=== PATIENT | male | born 1995 | race American Indian/Alaskan Native ===

== ENCOUNTER 2020-06-11 15:31 | Emergency (ER) | payer SELFPAY ==
--- NOTE | 2020-06-11 16:09 | Event Note ---
ED Screening Note Date of service: 06/11/20 Time: 16:08 ED Screening Note: Complains of right middle finger pain and swelling after cutting his finger 3 days ago Significant swelling and erythema noted on exam This initial assessment/diagnostic orders/clinical plan/treatment(s) is/are subject to change based on patients health status, clinical progression and re- assessment by fellow clinical providers in the ED. Further treatment and workup at subsequent clinical providers discretion. Patient/guardian urged not to elope from the ED as their condition may be serious if not clinically assessed and managed. Initial orders include: Labs X-ray
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
[2020-06-11 17:44] LABS: Alanine Aminotransferase 36 units/L (7-56); Albumin 4.5 g/dL (3.9-5); BUN/Creatinine Ratio 15; Blood Urea Nitrogen 17 mg/dL (9-20); Hemolysis Index 6
[2020-06-11 17:54] LABS: Basophils % (Auto) 0.6 % (0.0-1.8); Eosinophils # (Auto) 0.1 K/mm3 (0.0-0.4); Eosinophils % (Auto) 1.3 % (0.0-4.3); Hematocrit 38.1 % (35.5-45.6); Hemoglobin 12.8 gm/dl (11.8-15.2); Lymphocytes # (Auto) 1.8 K/mm3 (1.2-5.4); Lymphocytes % (Auto) 30.7 % (13.4-35.0); Mean Corpuscular HGB Conc 34 % (32-34); Mean Corpuscular Volume 78 fl (84-94); Monocytes # (Auto) 0.6 K/mm3 (0.0-0.8); Monocytes % (Auto) 9.8 % (0.0-7.3); Platelet Count 220 K/mm3 (140-440); Red Blood Count 4.92 M/mm3 (3.65-5.03); Red Cell Distribution Width 16.2 % (13.2-15.2)
[2020-06-11] MEDS ORDERED: SULFAMETHOXAZOLE/TRIMETHOPRIM 800/160MG DS TAB PO ONE (22:13)
[2020-06-11] MEDS ORDERED: IBUPROFEN 600 MG TAB PO ONE (22:13)
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
[2020-06-12 00:25] VITALS: BP 127/86
== END 2020-06-11 23:38 | disposition home or self-care (01) ==
LOC: ED 15:31
DX: S61.212A Laceration without foreign body of right middle finger without damage to nail, initial encounter (principal); S56.40 Unspecified injury of extensor muscle, fascia and tendon of other and unspecified finger at forearm level; L03.011 Cellulitis of right finger; Z79.899 Other long term (current) drug therapy; W45.8XXA Other foreign body or object entering through skin, initial encounter; Y93.89 Activity, other specified; Y92.009 Unspecified place in unspecified non-institutional (private) residence as the place of occurrence of the external cause; Y99.8 Other external cause status
CPT/HCPCS: 36415; 80053; 85025

== ENCOUNTER 2021-03-21 15:44 | Emergency (ER) | payer SELFPAY ==
[2021-03-21 16:03] VITALS: BP 145/76
--- NOTE | 2021-03-21 16:08 | Emergency Department Report ---
- General Chief Complaint: Sore Throat Stated Complaint: SORETHROAT X 1 WEEK Time Seen by Provider: 03/21/21 15:59 Source: patient Mode of arrival: Ambulatory Limitations: No Limitations - History of Present Illness Initial Comments: Patient is a 25-year-old male presents emergency room with complaints of a sore throat that began a week ago. He is complaining of a dry cough, chills, loss of taste. He denies any body aches, fever, vomiting, diarrhea, shortness of breath, chest pain. He has not been vaccinated for COVID-19. He has not been tested for COVID-19 since becoming sick. No past medical history. No allergies to medications. He is a smoker - Related Data Previous Rx's Medication Instructions Recorded Last Taken Type Ibuprofen [Motrin] 600 mg PO Q8H PRN #30 tablet 06/11/20 Unknown Rx Sulfamethoxazole/Trimethoprim 1 each PO Q12H #20 tablet 06/11/20 Unknown Rx [Bactrim DS TAB] Benzonatate [Tessalon Perles] 100 mg PO Q8HR PRN #10 capsule 03/21/21 Unknown Rx guaiFENesin ER [Mucinex ER] 600 mg PO Q12H #14 tablet.er 03/21/21 Unknown Rx Allergies Allergy/AdvReac Type Severity Reaction Status Date / Time No Known Allergies Allergy Verified 03/21/21 15:54 ED Review of Systems ROS: Stated complaint: SORETHROAT X 1 WEEK Other details as noted in HPI Comment: All other systems reviewed and negative ED Past Medical Hx - Medications Home Medications: Home Medications Medication Instructions Recorded Confirmed Last Taken Type Ibuprofen [Motrin] 600 mg PO Q8H PRN #30 tablet 06/11/20 Unknown Rx Sulfamethoxazole/Trimethoprim 1 each PO Q12H #20 tablet 06/11/20 Unknown Rx [Bactrim DS TAB] Benzonatate [Tessalon Perles] 100 mg PO Q8HR PRN #10 capsule 03/21/21 Unknown Rx guaiFENesin ER [Mucinex ER] 600 mg PO Q12H #14 tablet.er 03/21/21 Unknown Rx ED Physical Exam - General Limitations: No Limitations General appearance: alert, in no apparent distress - Head Head exam: Present: atraumatic, normocephalic - Eye Eye exam: Present: normal appearance - ENT ENT exam: Present: normal orophraynx, mucous membranes moist, other (no tonsillar hypertrophy or exudates ) - Respiratory Respiratory exam: Present: normal lung sounds bilaterally. Absent: respiratory distress, wheezes, rales, rhonchi, stridor, chest wall tenderness, accessory muscle use, decreased breath sounds, prolonged expiratory - Cardiovascular Cardiovascular Exam: Present: regular rate, normal rhythm, normal heart sounds. Absent: systolic murmur, diastolic murmur, rubs, gallop - Neurological Exam Neurological exam: Present: alert, oriented X3 - Psychiatric Psychiatric exam: Present: normal affect, normal mood - Skin Skin exam: Present: warm, dry, intact ED Course Vital Signs 03/21/21 15:50 Temperature 98.4 F Pulse Rate 72 Respiratory 18 Rate Blood Pressure 145/76 O2 Sat by Pulse 97 Oximetry ED Medical Decision Making - Medical Decision Making Patient is a 25-year-old male presents emergency room with complaints of a sore throat that began a week ago. He is complaining of a dry cough, chills, loss of taste. He denies any body aches, fever, vomiting, diarrhea, shortness of breath, chest pain. He has not been vaccinated for COVID-19. He has not been tested for COVID-19 since becoming sick. No past medical history. No allergies to medications. He is a smoker. Vitals are stable. On exam normal oropharynx, no tonsillar hypertrophy or exudates, breath sounds are clear bilaterally, no wh eezing, no rales, no rhonchi. Patient has no fever, no hypoxia. Symptoms could represent URI. Discussed supportive care and symptomatic treatment with patient and the importance of oral hydration. Discussed strict return precautions and the importance of outpatient primary care follow-up. Advised patient Please take medication as prescribed. Increase your fluid intake. Follow-up with your primary care doctor for reexamination. Recommend for you to get COVID-19 testing and if positive to self quarantine for 10 days from onset of symptoms. Return to emergency room for any new or worsening symptoms. Please quit smoking. Critical care attestation.: If time is entered above; I have spent that time in minutes in the direct care of this critically ill patient, excluding procedure time. ED Disposition Clinical Impression: Tobacco use URI (upper respiratory infection) Qualifiers: URI type: unspecified URI Qualified Code(s): J06.9 - Acute upper respiratory infection, unspecified Disposition: 01 HOME / SELF CARE / HOMELESS Is pt being admited?: No Does the pt Need Aspirin: No Condition: Stable Instructions: Viral Respiratory Infection Test, Steps to Quit Smoking Additional Instructions: Please take medication as prescribed. Increase your fluid intake. Follow-up with your primary care doctor for reexamination. Recommend for you to get COVID-19 testing and if positive to self quarantine for 10 days from onset of symptoms. Return to emergency room for any new or worsening symptoms. Please quit smoking. Prescriptions: guaiFENesin ER [Mucinex ER] 600 mg PO Q12H #14 tablet.er Benzonatate [Tessalon Perles] 100 mg PO Q8HR PRN #10 capsule PRN Reason: cough Referrals: KOFI GILES MD [Staff Physician] - 3-5 Days [facility] [Provider Group] - 3-5 Days Forms: Work/School Release Form(ED) Time of Disposition: 16:07 Print Language: AMERICAN
== END 2021-03-21 17:06 | disposition home or self-care (01) ==
LOC: ED 15:44
DX: J06.9 Acute upper respiratory infection, unspecified (principal); F17.200 Nicotine dependence, unspecified, uncomplicated; Z79.899 Other long term (current) drug therapy
CPT/HCPCS: 99281